=== PATIENT | female | born 1975 | race Caucasian/White ===

== ENCOUNTER 2016-06-07 03:10 | Emergency (ER) | payer OTHER ==
[2016-06-07 03:19] VITALS: BP 108/58
[2016-06-07] MEDS: ASPIRIN 81 MG CHEW TAB PO ONE (03:20)
--- NOTE | 2016-06-07 03:22 | ED Physician Documentation ---
General Adult - HISTORIAN Historian: patient, paramedics, other (police) - HPI Stated Complaint: chest pain Chief Complaint: General Adult Additional Information: Arrested for DWI. Refused to get out of patrol car at intermediate. Said she had a heart condition and needed oxygen. EMS arrived and patient refused IV, further treatment. Said to have been hyperventilating, cursing, in ambulance and at intermediate. Pulse ox was 100% on ambient air. On arrival in ER she is tearful, tachypneic at times, and says she will allow us to treat her. Has had CP intermittenly all day. Has had a total of 6 nitro tabs with temporary relief. 81 mg asa po yesterday afternoon. Says she has had 4 heart attacks since [address] Valencia is her improvement rn at [facility]. - ROS CONST: no problems - PAST HX Past History: AMI Surgeries/Procedures: (x3), cholecystectomy, cardiac stent (x1) Allergies/Adverse Reactions: Allergies Allergy/AdvReac Type Severity Reaction Status Date / Time No Known Allergies Allergy Verified 06/07/16 03:19 Home Medications: Ambulatory Orders Medication Instructions Recorded Atorvastatin Calcium [Lipitor] 80 mg D 11/23/13 Lisinopril [Lisinopril] 2.5 mg D 11/23/13 Metoprolol Tartrate [Lopressor] 25 mg D 11/23/13 Prasugrel HCl [Effient] 10 mg D 11/23/13 Aspirin [Bertha] 81 mg PO DAILY 06/07/16 Nitroglycerin [Nitrostat] 0.3 mg SL 15 PRN 06/07/16 - SOCIAL HX Smoking History: cigarettes (1 1/2 PPD till [place], now 1/2 PPD) Alcohol Use: occasionally Drug Use: none - FAMILY HX Family History: Yes (early [place]'s, in 30's) - VITAL SIGNS Vital Signs: Vital Signs Temp Pulse Resp BP Pulse Ox 114/72 10/13/14 13:39 - REVIEWED ASSESSMENTS Nursing Assessment Reviewed: Yes Vitals Reviewed: Yes Progress - Progress Progress: Chest - one-view Clinical history: Chest pain. Findings: Examination of the chest single portable AP view 06/07/2016 0335 hours with no prior films for comparison demonstrates the lungs to be clear. Cardiovascular and mediastinal silhouettes are within normal limits. Monitor leads superimpose the chest. Impression: 1. No active disease. Electronically signed on Jun 07, 2016 3:44:24 AM CDT by: Oumar Charles [id number], Took one of her own nitro tabs. UDS negative. EKG: sinus rhythm, 89 BPM, no ischemic chgs 0350, mother at bedside. Mom and pt want to leave for [facility], mom will drive. Want to leave, even though troponin not resulted. 0418, left ER w/o results for [facility] and w/o signing AMA papers. ED Results Lab/Radiology - Orders Orders: ED Orders Category Date Time Status Continuous EKG monitoring Q1H Care 06/07/16 03:12 Active Continuous Pulse Oximetry Q1H Care 06/07/16 03:12 Active CHEST 1 VIEW [RAD] Stat Exams 06/07/16 Ordered CBC/PLATELET/DIFF Routine Lab 06/07/16 Ordered CMP Routine Lab 06/07/16 Ordered DRUG SCREEN URINE MEDICAL ONLY Routine Lab 06/07/16 Ordered ETHANOL MEDICAL USE ONLY Stat Lab 06/07/16 Ordered URINALYSIS Routine Lab 06/07/16 Ordered Aspirin Med 06/07/16 03:15 Once 243 mg PO NOW ONE EKG WITH COMPARISON Stat Ther 06/07/16 Ordered General Adult Physical Exam - PHYSICAL EXAM GENERAL APPEARANCE: moderate distress (anxious, angry) EENT: eye inspection normal, ENT inspection normal, LISA NECK: normal inspection, supple RESPIRATORY: no resp distress, breath sounds normal CVS: reg rate & rhythm, heart sounds normal, no murmur ABDOMEN: soft, normal bowel sounds, non-tender RECTAL: deferred BACK: normal inspection, other (movements w/o pain) SKIN: warm/dry, normal color EXTREMITIES: normal range of motion, no evidence of injury, no edema NEURO: CN's nml as tested, motor nml, sensation nml Discharge Clincal Impression: Chest pain Qualifiers: Chest pain type: unspecified Qualified Code(s): R07.9 - Chest pain, unspecified Home Medications: Ambulatory Orders Atorvastatin Calcium [Lipitor] 80 mg D 11/23/13 Lisinopril [Lisinopril] 2.5 mg D 11/23/13 Metoprolol Tartrate [Lopressor] 25 mg D 11/23/13 Prasugrel HCl [Effient] 10 mg D 11/23/13 Aspirin [Bertha] 81 mg PO DAILY 06/07/16 Nitroglycerin [Nitrostat] 0.3 mg SL 15 PRN 06/07/16 Condition: Fair Disposition: 07 AGAINST MEDICAL ADVICE Decision to Admit: NO Decision Time: 04:18
[2016-06-07 03:43] LABS: BASOPHILS % 0.5 (0.0-1.5); EOSINOPHILS % 3.5 % (0.0-6.8); MEAN CORPUSCULAR HEMOGLOBIN 28.4 pg (28.0-34.0); MONOCYTES # 0.3 # k/uL (0.0-0.9); MONOCYTES % 2.6 % (0.0-11.0); NEUTROPHILS # 6.6 # k/uL (1.4-7.7)
[2016-06-07 03:43] LABS: eGFR (African) > 60; eGFR (Non-African) > 60
[2016-06-07 05:55] LABS: APPEARANCE,URINE CLEAR (CLEAR); COLOR,URINE YELLOW (YELLOW); OCCULT BLOOD,URINE TRACE-LYSED (NEGATIVE); UROBILINOGEN URINE 0.2 Eu (0.2-1.0)
[2016-06-07 05:56] LABS: AMPHETAMINE NEGATIVE ng/mL (<1000); BARBITURATES NEGATIVE ng/mL (<300); CANNABINOIDS NEGATIVE ng/mL (<50); COCAINE NEGATIVE ng/mL (<150); METHAMPHETAMINE NEGATIVE ng/mL (<1000); METHYLENEDIOXYMETHAMPHETAMINE NEGATIVE ng/mL (<500)
--- NOTE | 2016-06-07 06:55 | Diagnostic Imaging Report ---
Report Submission Date: Jun 07, 2016 3:44:24 AM CDT Patient ~ Study Name: ASHLYN BILLINGSLEY ~ Date: Jun 07, 2016 3:35:01 AM CDT ~ Modality Type: CR Gender: F ~ Description: CHEST : 73 ~ Institution: [facility] Physician: ELENA WESTBROOK ~ ~ ~ ~ Chest - one-view Clinical history: ~Chest pain. Findings: ~Examination of the chest single portable AP view 06/07/2016 0335 hours with no prior films for comparison demonstrates the lungs to be clear. ~ Cardiovascular and mediastinal silhouettes are within normal limits. ~Monitor leads superimpose the chest. Impression: 1. ~No active disease. ~ Electronically signed on Jun 07, 2016 3:44:24 AM CDT by: Oumar HERNANDEZ
== END 2016-06-07 04:10 | disposition left against medical advice (07) ==
LOC: ED 03:10
DX: R07.9 Chest pain, unspecified (principal)
CPT/HCPCS: 71010; 80053; 80320; 80377; 81002; 81025; 84484; 85025; 99283; G0480; G0481; S1016